=== PATIENT | female | born 1995 | race African-American/Black ===

== ENCOUNTER 2021-05-12 11:06 | Emergency (ER) | payer BC, SELFPAY ==
--- NOTE | ~2021-05-12 | XR_ITS ---
EXAMINATION: XR chest 1V portable EXAM DATE: 05/12/2021 11:42 INDICATION: cough, covid PUI, Congestion, Nausea TECHNIQUE: Portable AP frontal chest x-ray was obtained. There is no prior study for comparison. FINDINGS: The lungs are clear. There are no pleural effusions. The cardiomediastinal silhouette is within normal limits. There is no pneumothorax suspected. The bones and soft tissues are unremarkab le. IMPRESSION: No acute cardiopulmonary findings. Reviewed, dictated and finalized at location A. [employer]DI[employer]ORER
[2021-05-12 11:10] VITALS: BP 123/87; PULSE 84; RESP 16; TEMP 36.6; O2SAT 100
--- NOTE | 2021-05-12 11:19 | ED.GENADULT ---
HPI - General Adult General Chief complaint: Unspecified Stated complaint: COVID symptoms Time Seen by Provider: 05/12/21 11:18 Source: patient Mode of arrival: ambulatory Limitations: no limitations History of Present Illness HPI narrative: Patient is a 25-year-old female with a history of anxiety and depression presenting for evaluation of cough, chest pain, nausea, diarrhea, rhinorrhea and congestion. Patient states she believes she may have Covid. States that she has a history of Covid infection approximately a year ago. She states that she was exposed to someone who was positive for Covid on May 01. She reports sore throat, congestion, runny nose that started yesterday. She reports fatigue and myalgias. She reports dry cough without shortness of breath. She reports intermittent chest pain over the past 4 weeks. She denies any pain with deep inspiration. She denies calf swelling or leg pain. No recent car or air travel. In terms of the patient's chest pain, she denies current pain. States pain is in the center or her chest, described as achy and intermittent. No associated with jaw pain, neck pain or back pain. No shortness of breath. Patient states her place of work may also be an exposure. 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 Patient states that she recently started a new patch control, is wondering if that is contributing to some of the nausea and diarrhea she is having. She denies any significant abdominal pain. She states she is currently menstruating. Does not believe she is . She denies any dysuria or hematuria. Related Data Allergies Allergy/AdvReac Type Severity Reaction Status Date / Time amoxicillin AdvReac Hives Verified 05/12/21 11:41 ciprofloxacin [From Cipro] AdvReac Hives Verified 05/12/21 11:41 metronidazole [From Flagyl] AdvReac Hives Verified 05/12/21 11:41 Penicillins AdvReac Hives Verified 05/12/21 11:41 tramadol AdvReac Vomiting Verified 05/12/21 11:41 Review of Systems Review of Systems: CONSTITUTIONAL: Reports subjective fever and chills EYES: Denies visual changes, redness, or discharge. ENT: Reports rhinorrhea, congestion, sore throat CARDIOVASCULAR: Reports intermittent chest pain over the past several weeks without palpitations or edema, denies current chest pain. RESPIRATORY: Reports cough without shortness of breath GASTROINTESTINAL: Denies abdominal pain, reports nausea without vomiting, reports intermittent diarrhea GENITOURINARY: Denies dysuria or hematuria. SKIN: Denies rash or itching. MUSCULOSKELETAL: Denies back pain, joint pain, or myalgia. NEUROLOGIC: Reports mild headache without focal weakness or numbness. PSYCHIATRIC: Reports history of anxiety and depression [facility] Social History Social History (Updated 05/12/21 @ 11:31 by Anny Blanco MD) Smoking status: Never smoker Substance use: never Gender identity (if verbalized by the patient): Female Exam Narrative: GENERAL: Awake, alert, conversant HEAD: Normocephalic, atraumatic. EYES: PERRLA and EOMI. ENT: Nares clear, no rhinorrhea or epistaxis. Mucous membranes moist. Uvula is midline. Mild pharyngeal erythema, no tonsillar exudate. No trismus. No cervical or submandibular lymphadenopathy. NECK: Supple. CHEST: No respiratory distress, breathing even and non labored HEART: Regular rate, sinus rhythm ABDOMEN:Non distended, non tender EXTREMITIES: Normal range of motion. No edema. SKIN: Warm, dry, no rash. NEURO:No focal deficits. Alert and oriented x3 Course Vital Signs Vital signs: Vital Signs Temperature 36.6 C 05/12/21 11:10 Pulse Rate 84 05/12/21 11:10 Respiratory Rate 16 05/12/21 11:10 Blood Pressure 123/87 05/12/21 11:10 Pulse Oximetry 100 05/12/21 11:10 Temperature 36.6 C 05/12/21 11:21 Pulse Rate 84 05/12/21 11:21 Respiratory Rate 16 05/12/21 11:21 Blood Pressure 123/87 05/12/21 11:21 Pulse Oximetry 100
[2021-05-12 11:21] VITALS: BP 123/87; PULSE 84; RESP 16; TEMP 36.6; O2SAT 100
--- NOTE | 2021-05-12 11:25 | ECG_ITS ---
Measurements Intervals [place] Rate: 73 P: 66 NE: 178 QRS: 78 QRSD: 73 T: 8 QT: 371 QTc: 410 Interpretive Statements SINUS RHYTHM WITH SINUS ARRHYTHMIA POSSIBLE LEFT ATRIAL ENLARGEMENT BORDERLINE ST-T WAVE ABNORMALITY- INFERIOR LEADS BASELINE ARTIFACT- I, II, III, AVR, AVL, V4 BORDERLINE ECG Electronically Signed On 05-12-2021 11:46:22 [facility] by Mando Faye D.O.
[2021-05-12 11:43] LABS: Basophils Percent Auto 0.2 % (0.2-1.2); Eosinophils Absolute Auto 0.1 K/mm3 (0-0.3); Eosinophils Percent Auto 1.4 % (0-4.4); Hematocrit 40.4 % (37.0-47.0); Hemoglobin 13.4 g/dL (12.0-15.0); Immature Granulocyte Absolute 0.06 K/mm3 (0.00-0.031); Immature Granulocyte Percent A 0.7 % (0-0.5); Lymphocytes Absolute Auto 4.01 K/mm3 (0.9-3.2); Lymphocytes Percent Auto 47.1 % (18.3-44.2); Mean Corpuscular HGB Conc 33.2 g/dl (32-36); Mean Corpuscular Hemoglobin 32.1 pg (26-34); Mean Corpuscular Volume 96.7 fl (80-100); Monocytes Absolute Auto 0.6 K/mm3 (0.1-0.6); Neutrophils Absolute Auto 3.7 K/mm3 (1.3-6.7); Neutrophils Percent Auto 43.6 % (45.5-73.1); Platelet Count Result 330 k/mm3 (150-375); Red Blood Count 4.18 M/mm3 (4.2-5.4); Red Cell Distribution Width 12.6 % (11.5-14.5); White Blood Count 8.5 K/mm3 (4.5-10.0)
[2021-05-12 11:54] LABS: Alanine Aminotransferase 15 U/L (4-35); Albumin Level 4.5 g/dL (3.5-5.1); Alkaline Phosphatase 64 U/L (38-126); Anion Gap 11 mmol/L (8-16); Aspartate Amino Transferase 24 U/L (14-36); Bilirubin,Total 0.8 mg/dL (0.2-1.3); Blood Urea Nitrogen 9 mg/dL (7-17); Calcium 9.1 mg/dL (8.4-10.2); Carbon Dioxide 24 mmol/L (22-30); Chloride 105 mmol/L (98-107); Estimated CRCL calculation 83 ml/min; Estimated Glomerular Filt Rate > 60; Glucose 95 mg/dL (65-110); Potassium 4.4 mmol/L (3.4-5.0); Sodium 140 mmol/L (137-145)
[2021-05-12] MEDS: KETOROLAC (*BKC) 60 MG/2 ML VIAL 30 MG IM (11:56)
[2021-05-12] MEDS: ACETAMINOPHEN 500 MG TABLET 1000 MG PO (11:57)
[2021-05-12] MEDS: ONDANSETRON HCL ODT 4 MG TABLET PO (11:57)
[2021-05-12 12:06] LABS: Troponin I < 0.012 ng/mL (0.000-0.034)
[2021-05-12 20:23] LABS: SARS-CoV-2 RNA PCR Negative
== END 2021-05-12 13:28 | disposition home or self-care (01) ==
PROVIDERS: Emergency Provider Emergency Medicine
DX: J06.9 Acute upper respiratory infection, unspecified (principal); Z20.822 Contact with and (suspected) exposure to COVID-19; Z86.16 Personal history of COVID-19; R94.31 Abnormal electrocardiogram [ECG] [EKG]
CPT/HCPCS: 36415; 71045; 80053; 84484; 85025; 85380; 87081; 87804; 87880; 93005; 96372; 99284; A9270; C9803; J1885; U0003; U0005

== ENCOUNTER 2021-05-22 09:04 | Emergency (ER) | payer BC, SELFPAY ==
--- NOTE | ~2021-05-22 | CT_ITS ---
EXAMINATION: CT abdomen pelvis w con DATE: 05/22/2021 10:03 INDICATION: Right lower quadrant pain TECHNIQUE: Computed tomography (CT) of the abdomen and pelvis was performed with 100 mL Omnipaque-350 intravenous contrast. Automated exposure control and iterative reconstruction technique were employe d. The dose-length product was 220.96 mGy-cm. COMPARISON: None FINDINGS: Lung bases are clear. Heart size is normal. No pericardial or pleural effusion. Liver, gallbladder, s pleen, pancreas, bilateral adrenal glands and kidneys are normal. Normal appendix. No abnormal bowel wall thickening or obstruction. Bladder, anteverted uterus and bilateral adnexa are normal. No free i ntraperitoneal gas or fluid. No pathologically enlarged abdominal or pelvic lymphadenopathy. Bones ar e unremarkable. IMPRESSION: 1. Normal appendix. No acute intra-abdominal/pelvic process. Reviewed, dictated and finalized at location A. [employer]
[2021-05-22 09:05] VITALS: BP 127/80; PULSE 92; RESP 18; TEMP 36.6; O2SAT 100
[2021-05-22 09:25] LABS: Basophils Percent Auto 0.1 % (0.2-1.2); Eosinophils Absolute Auto 0.1 K/mm3 (0-0.3); Eosinophils Percent Auto 0.8 % (0-4.4); Hematocrit 40.4 % (37.0-47.0); Hemoglobin 13.7 g/dL (12.0-15.0); Immature Granulocyte Absolute 0.08 K/mm3 (0.00-0.031); Immature Granulocyte Percent A 0.8 % (0-0.5); Lymphocytes Absolute Auto 2.78 K/mm3 (0.9-3.2); Lymphocytes Percent Auto 28.6 % (18.3-44.2); Mean Corpuscular HGB Conc 33.9 g/dl (32-36); Mean Corpuscular Hemoglobin 32.1 pg (26-34); Mean Corpuscular Volume 94.6 fl (80-100); Mean Platelet Volume 9.1 fl (7.4-10.4); Monocytes Absolute Auto 0.6 K/mm3 (0.1-0.6); Monocytes Percent Auto 6.4 % (2.6-8.5); Neutrophils Absolute Auto 6.2 K/mm3 (1.3-6.7); Neutrophils Percent Auto 63.3 % (45.5-73.1); Platelet Count Result 332 k/mm3 (150-375); Red Blood Count 4.27 M/mm3 (4.2-5.4); Red Cell Distribution Width 12.9 % (11.5-14.5); White Blood Count 9.7 K/mm3 (4.5-10.0)
[2021-05-22 09:29] LABS: Add Urine Microscopic? YES; Appearance Urine Clear (Clear); Bacteria Urine Trace /hpf; Bilirubin Urine Negative (Negative); Blood Urine 2+ (Negative); Color Urine Straw (Yellow); Glucose Urine UA Negative (Negative); Ketones Urine Negative (Negative); Leukocyte Esterase Ur 1+ LEU/UL (Negative); Nitrate Urine Negative (Negative); Protein Urine Negative (Negative); RBC Urine 0-2 /hpf (0-2); Specific Grav Ur 1.008 (1.001-1.035); Squamous Epithelial Cell Urine Few /hpf (Few); Urobilinogen Urine Negative mg/dL (<2.0); WBC Urine 0-3 /hpf
--- NOTE | 2021-05-22 09:34 | ED.GENADULT ---
HPI - General Adult General Chief complaint: Abdominal Pain <German Worthington PA-C - Last Filed: 05/22/21 10:26> Stated complaint: appendix pain <German Worthington PA-C - Last Filed: 05/22/21 10:26> Time Seen by Provider: 05/22/21 09:18 <German Worthington PA-C - Last Filed: 05/22/21 10:26> Source: patient <CARMENCITA Bolton Last Filed: 05/22/21 10:26> Mode of arrival: ambulatory <CARMENCITA Bolton Last Filed: 05/22/21 10:26> Limitations: no limitations <German Worthington PA-C - Last Filed: 05/22/21 10:26> History of Present Illness HPI narrative: Patient is a 25-year-old female with chief complaint of right lower quadrant pain that has been progressively worsening over the past 5 days. Patient reports last week she had nausea vomiting and diarrhea which has resolved but now the pain is increasing. Patient reports she has not had fevers or chills. Patient denies increasing urination or inability to urinate. Patient reports her mother has similar symptoms many years ago and was diagnosed with appendicitis. Patient reports that her pain is 8 out of 10. Patient reports she had drank water this morning but has not eaten or drinking anything. Patient denies worsening of her symptoms after eating or drinking. Patient reports she has recently started control patches. She reports she is currently spotting and denies chance of . She denies any previous abdominal surgeries or injuries. <German Worthington PA-C - Last Filed: 05/22/21 10:26> Related Data Home medications: Home Medications Medication Instructions Recorded Confirmed escitalopram oxalate mg 05/22/21 <CARMENCITA Bolton Last Filed: 05/22/21 10:26> Allergies/adverse reactions: Allergies Allergy/AdvReac Type Severity Reaction Status Date / Time amoxicillin AdvReac Hives Verified 05/22/21 09:15 ciprofloxacin [From Cipro] AdvReac Hives Verified 05/22/21 09:15 metronidazole [From Flagyl] AdvReac Hives Verified 05/22/21 09:15 Penicillins AdvReac Hives Verified 05/22/21 09:15 tramadol AdvReac Vomiting Verified 05/12/21 11:41 <German Worthington PA-C - Last Filed: 05/22/21 10:26> Review of Systems Review of Systems: CONSTITUTIONAL: Denies fever, chills, or sweats. EYES: Denies visual changes, redness, or discharge. ENT: Denies rhinorrhea, congestion, sore throat, or otalgia. CARDIOVASCULAR: Denies chest pain, palpitations, or edema. RESPIRATORY: Denies cough or dyspnea. GASTROINTESTINAL: Reports abdominal pain, denies nausea, vomiting, or diarrhea. GENITOURINARY: Denies dysuria or hematuria. SKIN: Denies rash or itching. MUSCULOSKELETAL: Denies back pain, joint pain, or myalgia. NEUROLOGIC: Denies headache, numbness, dizziness, or weakness. PSYCHIATRIC: Denies anxiety or depression. <German Worthington PA-C - Last Filed: 05/22/21 10:26> [facility] Social History Social History: Social History (Updated 05/12/21 @ 11:31 by Anny Blanco MD) Smoking status: Never smoker Substance use: never Gender identity (if verbalized by the patient): Female <German Worthington PA-C - Last Filed: 05/22/21 10:26> Exam Narrative: GENERAL: Well-appearing, well-nourished, and in no acute distress. HEAD: Normocephalic, atraumatic. EYES: PERRLA and EOMI. CHEST: Clear to auscultation. No respiratory distress. No wheezes rales or rhonchi HEART: Regular rate and rhythm. No murmur heard. Normal peripheral pulses. ABDOMEN: Soft, tender RLQ, nondistended, normal active bowel sounds. SKIN: Warm, dry, no rash. NEURO: No focal deficits. Alert and oriented x3. PSYCH: Normal mood and affect. <German Worthington PA-C - Last Filed: 05/22/21 10:26> Course DIRECTOR PRISON/PA Physician Supervision For this patient encounter, I reviewed the DIRECTOR PRISON or PA documentation, treatment plan, and medical decision making. <Rustam Morrell MD - Last Filed: 05/22/21 13:41> Vital Signs Vital signs: Vital Signs Temperature
[2021-05-22 09:37] LABS: Alanine Aminotransferase 16 U/L (4-35); Albumin Level 4.6 g/dL (3.5-5.1); Alkaline Phosphatase 56 U/L (38-126); Anion Gap 10 mmol/L (8-16); Aspartate Amino Transferase 27 U/L (14-36); Bilirubin,Total 0.7 mg/dL (0.2-1.3); Blood Urea Nitrogen 9 mg/dL (7-17); Calcium 9.2 mg/dL (8.4-10.2); Carbon Dioxide 23 mmol/L (22-30); Chloride 106 mmol/L (98-107); Estimated CRCL calculation 98 ml/min; Estimated Glomerular Filt Rate > 60; Glucose 103 mg/dL (65-110); Lipase 172 U/L (23-300); Potassium 4.2 mmol/L (3.4-5.0); Sodium 139 mmol/L (137-145)
[2021-05-22] MEDS: HYDROmorphone HCL INJ (*CRX) 1 MG/ML SYR 0.5 MG IV PUSH (09:41)
[2021-05-22] MEDS: ONDANSETRON INJ 4 MG/2 ML VIAL IV PUSH (09:41)
[2021-05-22 10:35] VITALS: BP 114/87; PULSE 96; RESP 16; O2SAT 99
== END 2021-05-22 10:37 | disposition home or self-care (01) ==
PROVIDERS: Emergency Provider Emergency Medicine
DX: R10.31 Right lower quadrant pain (principal)
CPT/HCPCS: 36415; 74177; 80053; 81001; 81025; 83690; 85025; 96374; 96375; 99284; J1170; J2405; Q9967

== ENCOUNTER 2021-12-19 17:16 | Emergency (ER) | payer BC, SELFPAY ==
[2021-12-19 17:20] VITALS: BP 122/74; PULSE 96; RESP 18; TEMP 36.7; O2SAT 99
--- NOTE | 2021-12-19 18:05 | ED.GENADULT ---
HPI - General Adult General Chief complaint: Unspecified Stated complaint: unable to remove menstrual cup Time Seen by Provider: 12/19/21 17:51 History of Present Illness HPI narrative: 26-year-old female presented to the emergency department for evaluation for an unretrievable diva cup. Patient states that this is her first menses that she had used to the diva cup. Patient placed this about 2 PM and states she was unable to remove it. Patient denies any other complaints. Related Data Home Medications Medication Instructions Recorded Confirmed escitalopram oxalate 10 mg tablet mg 05/22/21 Allergies Allergy/AdvReac Type Severity Reaction Status Date / Time amoxicillin AdvReac Hives Verified 05/22/21 09:15 ciprofloxacin [From Cipro] AdvReac Hives Verified 05/22/21 09:15 metronidazole [From Flagyl] AdvReac Hives Verified 05/22/21 09:15 Penicillins AdvReac Hives Verified 05/22/21 09:15 tramadol AdvReac Vomiting Verified 05/12/21 11:41 Review of Systems Review of Systems: CONSTITUTIONAL: Denies fever, chills, or sweats. EYES: Denies visual changes, redness, or discharge. ENT: Denies rhinorrhea, congestion, sore throat, or otalgia. CARDIOVASCULAR: Denies chest pain, palpitations, or edema. RESPIRATORY: Denies cough or dyspnea. GASTROINTESTINAL: See HPI GENITOURINARY: Denies dysuria or hematuria. SKIN: Denies rash or itching. MUSCULOSKELETAL: Denies back pain, joint pain, or myalgia. NEUROLOGIC: Denies headache, numbness, or weakness. PSYCHIATRIC: Denies anxiety or depression. [facility] Social History Social History (Updated 05/12/21 @ 11:31 by Anny Blanco MD) Smoking status: Never smoker Substance use: never Gender identity (if verbalized by the patient): Female Exam Narrative: APPEARANCE: Well appearing, no pain, no distress, well-nourished. HEAD: normocephalic, atraumatic. EYES: PERRLA/EOMI, conjunctivae clear. NECK: Supple. No adenopathy, no masses. RESPIRATORY: Airway patent, respirations nonlabored. Clear to auscultation bilaterally, no rales, rhonchi, wheezing. CARDIOVASCULAR: Regular rate and rhythm without murmurs rubs or gallops. ABDOMINAL: Soft, nontender, nondistended, normal bowel sounds. Diva cup in vagina MUSCULOSKELETAL: Moves all extremities. Strength/ROM intact, No edema, No calf tenderness. NEURO: Alert. Cranial nerves II through XII intact. Grossly intact SKIN: Warm, dry. Normal Color PSYCHIATRIC: Normal affect/mood. Course Vital Signs Vital signs: Vital Signs Temperature 98.1 F 12/19/21 17:20 Pulse Rate 96 12/19/21 17:20 Respiratory Rate 18 12/19/21 17:20 Blood Pressure 122/74 12/19/21 17:20 Pulse Oximetry 99 12/19/21 17:20 Oxygen Delivery Room Air 12/19/21 17:20 Temperature 98.1 F 12/19/21 17:20 Pulse Rate 96 12/19/21 17:20 Respiratory Rate 18 12/19/21 17:20 Blood Pressure 122/74 12/19/21 17:20 Pulse Oximetry 99 12/19/21 17:20 Oxygen Delivery Room Air 12/19/21 17:20 Procedures Foreign Body Removal Foreign Body #1: Foreign Body Removal Time: 18:06 Time Out Performed: yes Site: vagina Description of foreign body: other (diva cup) Sedation/Analgesia: none Technique: manual removal Confirmed by:: direct visualization Complications: none Foreign Body Removal Narrative: Distal and of the diva cup was caught on some vaginal tissue. This did not appear to puncture the vaginal wall. Medical Decision Making Vital Signs Vital Signs: Vital Signs Temperature 98.1 F 12/19/21 17:20 Pulse Rate 96 12/19/21 17:20 Respiratory Rate 18 12/19/21 17:20 Blood Pressure 122/74 12/19/21 17:20 Pulse Oximetry 99 12/19/21 17:20 Oxygen Delivery Room Air 12/19/21 17:20 Temperature 98.1 F 12/19/21 17:20 Pulse Rate 96 12/19/21 17:20 Respiratory Rate 18 12/19/21 17:20 Blood Pressure 122/74 12/19/21 17:20 Pulse Oximetry 99 12/19/21 17:20 Oxygen Deliv
== END 2021-12-19 18:22 | disposition home or self-care (01) ==
LOC: ANHED 18:18
PROVIDERS: Emergency Provider Emergency Medicine
DX: T19.2XXA Foreign body in vulva and vagina, initial encounter (principal)
CPT/HCPCS: 99282

== ENCOUNTER 2022-05-11 07:39 | Emergency (ER) | payer OTHER, SELFPAY ==
--- NOTE | ~2022-05-11 | XR_ITS ---
EXAMINATION: XR hand LT min 3V DATE: 05/11/2022 08:07 INDICATION: Left hand dog bite. TECHNIQUE: 4 views of left hand were obtained. COMPARISON: None. FINDINGS: Bone alignment is normal. No fracture. Joint spaces are well maintained. IMPRESSION: 1. No fracture or radiopaque foreign body. Reviewed, dictated and finalized at location A. RALOGY PROFESSOR
[2022-05-11 07:41] VITALS: BP 130/80; PULSE 89; RESP 12; TEMP 36.3; O2SAT 100
[2022-05-11 07:49] VITALS: BP 128/88; PULSE 84; RESP 18; O2SAT 100
[2022-05-11] MEDS: TETANUS,DIPHTHERIA,AC PERTUSSIS ADULT (0.5 ML) BOOSTRIX IM (09:02)
[2022-05-11] MEDS: CLINDAMYCIN HCL 150 MG CAP 300 MG PO (09:03)
[2022-05-11] MEDS: DOXYCYCLINE HYCLATE 100 MG TABLET PO (09:03)
[2022-05-11 09:06] VITALS: BP 118/77; PULSE 94; RESP 18; O2SAT 100
--- NOTE | 2022-05-11 09:07 | ED.GENADULT ---
HPI - General Adult General Chief complaint: Animal Bite Stated complaint: dog bite L hand Time Seen by Provider: 05/11/22 07:43 Source: RN notes reviewed History of Present Illness HPI narrative: Patient presents emergency department from home for dog bite. Patient states that her dog bit her in the left hand last night. Patient notes 2 small puncture wounds in the palm of her left hand at the base of the thumb she states that the areas become more swollen and red she states it does cause some pain to radiate up into her hand with mild feeling of numbness in her left thumb she states she has had mild bleeding from the wound but denies any drainage from the wound she denies any other trauma or injury states that the dog is up-to-date on all of her shots she denies any fevers or chills or any other symptom. Unsure of last tetanus shot Related Data Home Medications Medication Instructions Recorded Confirmed escitalopram oxalate 10 mg tablet mg 05/22/21 Allergies Allergy/AdvReac Type Severity Reaction Status Date / Time amoxicillin AdvReac Hives Verified 05/11/22 07:48 ciprofloxacin [From Cipro] AdvReac Hives Verified 05/11/22 07:48 metronidazole [From Flagyl] AdvReac Hives Verified 05/11/22 07:48 Penicillins AdvReac Hives Verified 05/11/22 07:48 tramadol AdvReac Vomiting Verified 05/11/22 07:48 Review of Systems Review of Systems: Gen.: Denies fevers or chills Musculoskeletal: See HPI : Denies chance of Neuro: Denies numbness, tingling, weakness Skin: See HPI Endo: Denies DM PMFSH Past Medical History Medical History (Updated 05/11/22 @ 09:11 by Timothy Pozo DO) Anxiety Social History Social History Smoking status: Never smoker Substance use: never Gender identity (if verbalized by the patient): Female Exam Narrative: APPEARANCE: No acute distress, nontoxic, resting in bed Eyes: EOMI HEENT: Normocephalic, atraumatic, RESPIRATORY: No respiratory distress MUSCULOSKELETAl: Tender to palpation over the thenar eminence of the left hand with 2 small less than 0.5 puncture wounds present with no active bleeding or drainage there is erythema and swelling to this area remainder of the hand is nontender to palpation there is no tenderness of the wrist full flexion-extension of the first MCP and IP joint, capillary refill less than 3 seconds two-point tactile discrimination intact down to 5 mm in all 5 digits radial pulse 2+ NEURO: Awake and alert. Following commands, speech normal, no focal deficits SKIN:: Warm, dry. Normal Color no rash or lesions Course Course Emergency Course: Discussed with patient results of workup and diagnosis. Discussed need for follow-up with primary care, proper use of medication, and reasons to return to the emergency department. Patient understands and agrees to current treatment plan Vital Signs Vital signs: Vital Signs Temperature 97.4 F L 05/11/22 07:41 Pulse Rate 89 05/11/22 07:41 Respiratory Rate 12 05/11/22 07:41 Blood Pressure 130/80 05/11/22 07:41 Pulse Oximetry 100 05/11/22 07:41 Oxygen Delivery Room Air 05/11/22 07:41 Temperature 97.4 F L 05/11/22 07:41 Pulse Rate 94 05/11/22 09:06 Respiratory Rate 18 05/11/22 09:06 Blood Pressure 118/77 05/11/22 09:06 Pulse Oximetry 100 05/11/22 09:06 Oxygen Delivery Room Air 05/11/22 07:41 Medical Decision Making [facility] Narrative Medical decision making narrative: Patient with 2 puncture wound dog bites over left thenar eminence both are less than 0.5 cm not large enough to sutures no drainage from them but there is signs of infection the patient is allergic to amoxicillin and ciprofloxacin and will start on clindamycin and Doxy was discharged with follow-up as an outpatient Vital Signs Vital Signs: Vital Signs Temperature 97.4 F L 05/11/22 07:41 Pulse Rate 89 05/11/22 07:41 Respiratory Rate 12 05/11
[2022-05-11 09:22] VITALS: BP 112/82; PULSE 78; RESP 16; O2SAT 99
== END 2022-05-11 09:23 | disposition home or self-care (01) ==
PROVIDERS: Emergency Provider Emergency Medicine
DX: S61.452A Open bite of left hand, initial encounter (principal); Z23 Encounter for immunization; F41.9 Anxiety disorder, unspecified; W54.0XXA Bitten by dog, initial encounter
CPT/HCPCS: 73130; 90471; 90715; 99283; A9270

== ENCOUNTER 2022-07-26 10:11 | Emergency (ER) | payer OTHER, SELFPAY ==
--- NOTE | ~2022-07-26 | XR_ITS ---
EXAMINATION: XR chest 1V portable INDICATION: Cough TECHNIQUE: Portable AP chest at 1111 hours COMPARISON: 05/12/2021 FINDINGS: The lungs are free of acute opacities. No pleural effusion or pneumothorax. The cardiomedia stinal silhouette is normal. IMPRESSION: 1. No acute cardiopulmonary abnormality. Reviewed, dictated and finalized at location A.
[2022-07-26 10:15] VITALS: BP 136/73; PULSE 100; RESP 16; TEMP 36.7; O2SAT 99
[2022-07-26 10:55] LABS: Strep Group A RT-PCR NOT DETECTED (Negative)
[2022-07-26 11:06] LABS: SARS-CoV-2 RNA PCR Negative
--- NOTE | 2022-07-26 11:07 | ED.GENADULT ---
HPI - General Adult General Chief complaint: Upper Respiratory Infection Stated complaint: covid/strep/flu? Time Seen by Provider: 07/26/22 10:50 History of Present Illness HPI narrative: Lidia Esparza is a 26 y/o female who presents with reports of productive cough/ sore throat that started yesterday. Denies any known fever/chills/ ear pain. Related Data Home Medications Medication Instructions Recorded Confirmed escitalopram oxalate 10 mg tablet mg 05/22/21 Allergies Allergy/AdvReac Type Severity Reaction Status Date / Time amoxicillin AdvReac Hives Verified 07/26/22 11:26 ciprofloxacin [From Cipro] AdvReac Hives Verified 07/26/22 11:26 metronidazole [From Flagyl] AdvReac Hives Verified 07/26/22 11:26 Penicillins AdvReac Hives Verified 07/26/22 11:26 tramadol AdvReac Vomiting Verified 07/26/22 11:26 Review of Systems Review of Systems: CONSTITUTIONAL: Denies fever, chills, or sweats. EYES: Denies visual changes, redness, or discharge. ENT Reports congestion, sore throat, CARDIOVASCULAR: Denies chest pain, palpitations, or edema. RESPIRATORY: Reports productive cough. GASTROINTESTINAL: Denies abdominal pain, nausea, vomiting, or diarrhea. GENITOURINARY: Denies dysuria or hematuria. SKIN: Denies rash or itching. MUSCULOSKELETAL: Denies back pain, joint pain, or myalgia. NEUROLOGIC: Denies headache, numbness, dizziness, or weakness. PSYCHIATRIC: Denies anxiety or depression. PMFSH Past Medical History Medical History Anxiety Social History Social History Smoking status: Never smoker Substance use: never Gender identity (if verbalized by the patient): Female Exam Narrative: GENERAL: Well-appearing, well-nourished, and in no acute distress. HEAD: Normocephalic, atraumatic. EYES: PERRLA and EOMI. ENT: Nares clear, no rhinorrhea or epistaxis. Mucous membranes moist. Oropharynx with mild erythema and mild tonsillar hypertrophy of +2 without exudate or other lesions. Bilateral TMs pearly [place] nonbulging NECK: Supple. No adenopathy or masses. No carotid bruits or JVD CHEST: Clear to auscultation. No respiratory distress. No wheezes rales or rhonchi HEART: Regular rate and rhythm. No murmur heard. Normal peripheral pulses. ABDOMEN: Soft, nontender, nondistended, normal active bowel sounds. EXTREMITIES: Normal range of motion. No edema. SKIN: Warm, dry, no rash. NEURO: No focal deficits. Alert and oriented x3. PSYCH: Normal mood and affect. Course Vital Signs Vital signs: Vital Signs Temperature 36.7 C 07/26/22 10:15 Pulse Rate 100 07/26/22 10:15 Respiratory Rate 16 07/26/22 10:15 Blood Pressure 136/73 07/26/22 10:15 Pulse Oximetry 99 07/26/22 10:15 Temperature 36.7 C 07/26/22 10:15 Pulse Rate 100 07/26/22 10:15 Respiratory Rate 16 07/26/22 10:15 Blood Pressure 136/73 07/26/22 10:15 Pulse Oximetry 99 07/26/22 10:15 Medical Decision Making MDM Narrative Medical decision making narrative: On exam pt's respirations are even unlabored, lung sounds clear. This is most likely an upper respiratory viral infection. Symptoms started last night- antibiotics are not necessary Plan to d/c home with symtomatic treatment, may take OTC cold medications, push oral hydration and get plenty of rest. Differential Diagnosis Differential Diagnosis: Bronchitis/ URI/ Influenza/ Covid/ Strep/ Viral pharyngitis/ Pneumonia Vital Signs Vital Signs: Vital Signs Temperature 36.7 C 07/26/22 10:15 Pulse Rate 100 07/26/22 10:15 Respiratory Rate 16 07/26/22 10:15 Blood Pressure 136/73 07/26/22 10:15 Pulse Oximetry 99 07/26/22 10:15 Temperature 36.7 C 07/26/22 10:15 Pulse Rate 100 07/26/22 10:15 Respiratory Rate 16 07/26/22 10:15 Blood Pressure 136/73 07/26/22 10:15 Pulse Oximetry 99 07/26/22 10:15 Lab Data Labs: Lab Res
[2022-07-26 11:31] LABS: Influenza A QL RT-PCR Negative (Negative); Influenza B QL RT-PCR Negative (Negative)
[2022-07-26] MEDS: ACETAMINOPHEN 500 MG TABLET 1000 MG PO (11:52)
[2022-07-26] MEDS: KETOROLAC 30 MG/ML VIAL (*BKC) IM (11:53)
== END 2022-07-26 12:03 | disposition home or self-care (01) ==
PROVIDERS: Emergency Medicine; Emergency Provider Nurse Practitioner Family
DX: J06.9 Acute upper respiratory infection, unspecified (principal); J02.9 Acute pharyngitis, unspecified; F41.9 Anxiety disorder, unspecified; Z20.822 Contact with and (suspected) exposure to COVID-19
CPT/HCPCS: 71045; 87502; 87651; 96372; 99283; A9270; J1885; U0003; U0005